=== PATIENT | female | born 1975 ===

== ENCOUNTER 2018-08-16 21:58 | Emergency (ER) | payer OTHER ==
[2018-08-16 22:05] VITALS: BMI 34.4
[2018-08-16 22:26] VITALS: RESP 18; TEMP 98.4
--- NOTE | 2018-08-16 22:38 | ED PDOC ---
Arrival/HPI - General Chief Complaint: GI Problem Time Seen by Provider: 08/16/18 22:02 - History of Present Illness Narrative History of Present Illness (Text): 43 y/o F BIBEMS with dizziness and vomiting that began tonight. Patient was sitting up in bed, went to turn off tv when she suddenly became dizzy, which she describes as horrible and as spinning. She states she then became nauseated and vomited in ambulance twice. She denies headache, numbness, weakness, facial droop. She went to [facility] less than 1 month ago for same symptoms and had negative CT Head there. Past Medical History - Travel History If Yes, travel location?: [place] - Cardiac Hx Cardiac Disorders: Yes Hx Hypertension: Yes - Pulmonary Hx Respiratory Disorders: No Hx Asthma: No - Neurological Hx Neurological Disorder: No - HEENT Hx HEENT Disorder: No - Renal Hx Renal Disorder: No Hx Neurogenic Bladder: No - Endocrine/Metabolic Hx Endocrine Disorders: No - Hematological/Oncological Hx Blood Disorders: No - Integumentary Hx Dermatological Disorder: No - Musculoskeletal/Rheumatological Hx Musculoskeletal Disorders: No - Gastrointestinal Hx Gastrointestinal Disorders: No - Genitourinary/Gynecological Hx Genitourinary Disorders: No - Psychiatric Hx Psychophysiologic Disorder: No Hx Substance Use: No - Anesthesia Hx Anesthesia Reactions: No Hx Malignant Hyperthermia: No - Suicidal Assessment Feels Threatened In Home Enviroment: No Family/Social History Family/Social History: No Known Family HX Smoking Status: Never Smoked Hx Alcohol Use: No Hx Substance Use: No Allergies/Home Meds Allergies/Adverse Reactions: Allergies No Known Allergies Allergy (Verified 08/16/18 22:04) Home Medications: Home Meds Medication Instructions Recorded Confirmed Metoprolol Tartrate 50 mg PO BID 06/16/14 08/27/15 Review of Systems - Physician Review All systems were reviewed & negative as marked: Yes - Review of Systems Constitutional: absent: Fevers Respiratory: absent: SOB Cardiovascular: absent: Chest Pain Physical Exam - Physical Exam Narrative Physical Exam (Text): gen lying in stretcher with eyes closed head nc/at eyes perrl ent mmm neck supple chest no tenderness cv reg rate lungs cta b/l abd soft, nt back no cva tenderness skin no rash extremities no edema neuro alert, no focal deficit Vital Signs Temp Pulse Resp BP Pulse Ox 08/16/18 22:13 98.4 F 74 18 151/98 H 99 Medical Decision Making ED Course and Treatment: Dizziness much improved at this time. meclizine administered and prescribed, f/u ENT, return to ED for worsening dizziness, vomiting, pain, numbness, weakness, difficulty speaking, or any other problem. - Medication Orders Current Medication Orders: Meclizine HCl (Antivert) 50 mg PO STAT STA Stop: 08/16/18 22:34 Disposition/Present on Arrival - Present on Arrival Any Indicators Present on Arrival: No History of DVT/PE: No History of Uncontrolled Diabetes: No Urinary Catheter: No History of Decub. Ulcer: No History Surgical Site Infection Following: None - Disposition Have Diagnosis and Disposition been Completed?: Yes Diagnosis: Vertigo Disposition: HOME/ ROUTINE Disposition Time: 22:38 Patient Plan: Discharge Condition: GOOD Discharge Instructions (ExitCare): Vertigo (a Type of Dizziness) Prescriptions: Meclizine [Antivert] 25 mg PO TID PRN #20 tab PRN Reason: Dizziness Referrals: Alexys Raymond DO [Staff Provider] - Follow up with primary
[2018-08-16 22:50] VITALS: BP 127/86; PULSE 64; O2SAT 100
== END 2018-08-16 23:05 | disposition home or self-care (01) ==
LOC: ED 21:58
DX: R42 Dizziness and giddiness (principal); I10 Essential (primary) hypertension